=== PATIENT | male | born 1935 | race Caucasian/White ===

== ENCOUNTER 2016-05-29 18:39 | Inpatient (IN) | payer OTHER ==
--- NOTE | 2016-05-29 19:05 | EDPHY ---
H & P Stated Complaint: Fever/Chills had surgery at [facility] on 05/27 to remove melanoma HPI/ROS: HPI CHIEF COMPLAINT: Fever, chills, rigors, recent melanoma removal of face, right arm, and lymph node biopsy. HISTORY OF PRESENT ILLNESS: This patient very pleasant 81-year-old male, significant past medical history for pacemaker, hypertension, hyperlipidemia, AFib on Coumadin, he presents to the emergency room with chills and rigors concerns of infection status post biopsy and melanoma removal. Patient tells me that on May 27 he had melanoma removed out of his right arm, right side of his face, and lymph node biopsy in his right arm. He since then has had nighttime rigors and chills night sweats. No vomiting. No chest pain no shortness of breath. Past Medical History: Hypertension, hyperlipidemia, AFib on Coumadin, pacemaker , melanoma Past Surgical History: Recent melanoma removal right face right forearm. This was done on May 27 [place]. lymph node bx. Social History: Denies daily use of drugs alcohol tobacco products Family History: Noncontributory ROS REVIEW OF SYSTEMS: A comprehensive 10 point review of systems is otherwise negative aside from elements mentioned in the history of present illness. Exam Constitutional triage nursing summary reviewed, vital signs reviewed, awake/ alert. Eyes normal conjunctivae and sclera, EOMI, PERRLA. HENT normal inspection, atraumatic, moist mucus membranes, no epistaxis, neck supple/ no meningismus, no raccoon eyes. Respiratory clear to auscultation bilaterally, normal breath sounds, no respiratory distress, no wheezing. Cardiovascular rate normal, regular rhythm, no murmur, no edema, distal pulses normal. Gastrointestinal soft, non-tender, no rebound, no guarding, normal bowel sounds, no distension, no pulsatile mass. Genitourinary no CVA tenderness. Musculoskeletal right forearm lateral aspect: 10 cm vertical incision lateral aspect right forearm, redness surrounding sutures in place, appears to be infected cellulitis, no abscess, no pus drainage, distally neurovascular intact , warm to right forearm, lymph node biopsy site right medial arm biceps region shows no significant infection. no midline vertebral tenderness, full range of motion, no calf swelling, no tenderness of extremities, no meningismus, good pulses, neurovascularly intact. Skin pink, warm, & dry, no rash, skin atraumatic. Neurologic awake, alert and oriented x 3, AAOx3, moves all 4 extremities equally, motor intact, sensory intact, CN II-XII intact, normal cerebellar, normal vision, normal speech. Psychiatric normal mood/affect. Heme/Lymph/Immune no lymphadenopathy. Differential Diagnosis: Includes but is not limited to in a particular order, cellulitis, bacteremia, sepsis, dehydration, electrolyte abnormality, cancer causing fever Medical Decision Making: plan for this patient IV establishment, blood cultures , lactic acid, IV vancomycin. Patient will need to be admitted. Re-evaluation: ED x-ray chest two view: Subcutaneous care and right axilla mostly from lymph node biopsy. Right lung field slightly hazy. Image interpreted myself. No pneumothorax visualize. ED x-ray right forearm: No foreign body, no gas no osteomyelitis. 2043: this patient be admitted to the medical service spoke to the hospitalist Dr. Monae agrees to admit reason for admission is fever, chills, rigors, right forearm cellulitis with recent melanoma excision. Patient agrees for admission. Blood cultures have been pulled IV Vanco has been given. Patient is hemodynamically stable no fever here. Source: Patient - Personal History Current Tetanus Diphtheria and Acellular Pertussis (TDAP): Yes - Medical/Surgical History Other PMH: PM placed in 2008, Afib, hard of hearing - Social History Smoking Status: Never smoked Constitutional: Initial Vital Signs Temperature (C) 36.3 C 05/29/16 18:40 Heart Rate 91 05/29/16 18:40 Respiratory Rate 14 05/29/16 18:40 Blood Pressure 143/116 H 05/29/16 18:40 O2 Sat (%) 93 05/29/16 18:40 O2 Delivery Mode Room Air Allergies/Adverse Reactions: No Known Allergies Allergy (Verified 12/30/11 18:05) Home Medications: Medication Instructions Recorded Calcium Carbonate/Vitamin D3 1 each PO DAILY 05/29/16 [CALCIUM 600 + VIT D TABLET] Gabapentin [Neurontin 300 MG (*)] 300 mg PO DAILY 05/29/16 LORazepam [Ativan (*)] 0.5 mg PO DAILY PRN 05/29/16 Ramipril [Altace 5mg (*)] 5 mg PO DAILY 05/29/16 Simvastatin 40 mg PO HS 05/29/16 Warfarin Sodium [Coumadin 5MG (*)] 5 mg PO SUMOTUWETHFR 05/29/16 oxyCODONE HCL [Oxycodone HCl] 5 - 10 mg PO Q4H PRN 05/29/16 traZODone [traZODONE 50MG (*)] 75 mg PO HS 05/29/16 Medical Decision Making - Diagnostics Imaging: Imaging Impressions Chest X-Ray 05/29/16 19:15 Impression: Artifact versus asymmetric edema or early pneumonia in the right upper lobe. Findings discussed with Emergency Department physician, Ryder Apple MD at 05/29/2016 19:40. Wrist X-Ray 05/29/16 19:34 Impression: Negative. No evidence of osteomyelitis or subcutaneous gas. - Data Points Laboratory Results: Laboratory Results 05/29/16 19:18 05/29/16 19:18 05/29/16 05/29/16 05/29/16 19:39 19:18 19:18 WBC RBC Hgb Hct MCV MCH MCHC RDW Plt Count MPV Neut % (Auto) Lymph % (Auto) [place] % (Auto) Eos % (Auto) Baso % (Auto) Nucleat RBC Rel Count Absolute Neuts (auto) Absolute Lymphs (auto) Absolute Monos (auto) Absolute Eos (auto) Absolute Basos (auto) Absolute Nucleated RBC Immature Gran % Immature Gran # ESR PT 14.1 SEC SEC (12.0-15.0) INR 1.10 (0.83-1.16) APTT 29.1 SEC SEC (23.0-38.0) Sodium 139 mEq/L mEq/L (134-144) Potassium 4.2 mEq/L mEq/L (3.5-5.2) Chloride 103 mEq/L mEq/L (97-110) Carbon Dioxide 25 mEq/l mEq/l (22-31) Anion Gap 11 mEq/L mEq/L (8-16) BUN 12 mg/dL mg/dL (7-23) Creatinine 0.9 mg/dL mg/dL (0.7-1.3) Estimated GFR > 60 Glucose 97 mg/dL mg/dL (70-100) Calcium 9.5 mg/dL mg/dL (8.5-10.4) Total Bilirubin 1.6 mg/dL H mg/dL (0.1-1.4) AST 70 IU/L H IU/L (17-59) ALT 43 IU/L IU/L (21-72) Alkaline Phosphatase 54 IU/L IU/L (38-126) C-Reactive Protein 51.1 mg/L H mg/L (<10.0) Total Protein 7.5 g/dL g/dL (6.3-8.2) Albumin 4.3 g/dL g/dL (3.5-5.0) Urine Color YELLOW Urine Appearance CLEAR Urine pH 5.0 (5.0-7.5) Ur Specific [place] 1.021 (1.002-1.030) Urine Protein NEGATIVE (NEGATIVE) Urine Ketones 1+ H (NEGATIVE) Urine Blood NEGATIVE (NEGATIVE) Urine Nitrate NEGATIVE (NEGATIVE) Urine Bilirubin NEGATIVE (NEGATIVE) Urine Urobilinogen NEGATIVE EU EU (0.2-1.0) Ur Leukocyte Esterase NEGATIVE (NEGATIVE) Ur Culture Indicated? NOT INDICATED (NI) Urine Glucose NEGATIVE (NEGATIVE) 05/29/16 19:18 WBC 8.82 10^3/uL 10^3/uL (3.80-9.50) RBC 5.20 10^6/uL 10^6/uL (4.40-6.38) Hgb 16.6 g/dL g/dL (13.7-17.5) Hct 48.9 % % (40.0-51.0) MCV 94.0 fL fL (81.5-99.8) MCH 31.9 pg pg (27.9-34.1) MCHC 33.9 g/dL g/dL (32.4-36.7) RDW 13.1 % % (11.5-15.2) Plt Count 190 10^3/uL 10^3/uL (150-400) MPV 9.2 fL fL (8.7-11.7) Neut % (Auto) 75.6 % H % (39.3-74.2) Lymph % (Auto) 12.6 % L % (15.0-45.0) [place] % (Auto) 9.9 % % (4.5-13.0) Eos % (Auto) 1.2 % % (0.6-7.6) Baso % (Auto) 0.5 % % (0.3-1.7) Nucleat RBC Rel Count 0.0 % % (0.0-0.2) Absolute Neuts (auto) 6.67 10^3/uL H 10^3/uL (1.70-6.50) Absolute Lymphs (auto) 1.11 10^3/uL 10^3/uL (1.00-3.00) Absolute Monos (auto) 0.87 10^3/uL H 10^3/uL (0.30-0.80) Absolute Eos (auto) 0.11 10^3/uL 10^3/uL (0.03-0.40) Absolute Basos (auto) 0.04 10^3/uL 10^3/uL (0.02-0.10) Absolute Nucleated RBC 0.00 10^3/uL 10^3/uL (0-0.01) Immature Gran % 0.2 % % (0.0-1.1) Immature Gran # 0.02 10^3/uL 10^3/uL (0.00-0.10) ESR 6 MM/HR MM/HR (0-20) PT INR APTT Sodium Potassium Chloride Carbon Dioxide Anion Gap BUN Creatinine Estimated GFR Glucose Calcium Total Bilirubin AST ALT Alkaline Phosphatase C-Reactive Protein Total Protein Albumin Urine Color Urine Appearance Urine pH Ur Specific [place] Urine Protein Urine Ketones Urine Blood Urine Nitrate Urine Bilirubin Urine Urobilinogen Ur Leukocyte Esterase Ur Culture Indicated? Urine Glucose Medications Given: Discontinued Medications Sodium Chloride (Ns) 1,000 mls @ 0 mls/hr IV ONCE ONE PRN Reason: Wide Open Stop: 05/29/16 19:12 Last Admin: 05/29/16 19:23 Dose: 1,000 mls Vancomycin HCl 1.5 gm/ (Dextrose) 250 mls @ 166.67 mls/hr IV EDNOW ONE PRN Reason: Protocol Stop: 05/29/16 20:40 Last Admin: 05/29/16 20:05 Dose: 250 mls Departure - Departure Disposition: [facility] Inpatient Acute Clinical Impression: Right forearm cellulitis Condition: Good Referrals: Chris Baptiste MD [Primary Care Provider] - As per Instructions
[2016-05-29] MEDS ORDERED: NS 1,000 ML IV ONE (19:11)
[2016-05-29] MEDS ORDERED: VANCOMYCIN 1.5 GM in D5W 250 ML IV ONE (19:11)
[2016-05-29 19:38] LABS: % IMMATURE GRANULYOCYTES 0.2 % (0.0-1.1); ABSOLUTE IMMATURE GRANULOCYTES 0.02 10^3/uL (0.00-0.10); ADD DIFF? NO; ADD MORPH? NO; ADD SCAN? NO; ATYPICAL LYMPHOCYTE FLAG 0 (0-99); FRAGMENT RBC FLAG 0 (0-99); HEMATOCRIT 48.9 % (40.0-51.0); HEMOGLOBIN 16.6 g/dL (13.7-17.5); LEFT SHIFT FLG 0 (0-99); LIPEMIA HEMOLYSIS FLAG 90 (0-99); MEAN CELL HEMOGLOBIN 31.9 pg (27.9-34.1); MEAN CELL HEMOGLOBIN CONCENTR. 33.9 g/dL (32.4-36.7); MEAN PLATELET VOLUME 9.2 fL (8.7-11.7); PLATELET CLUMPS FLAG 0 (0-99); PLATELET COUNT 190 10^3/uL (150-400); RED CELL DISTRIBUTION WIDTH 13.1 % (11.5-15.2)
[2016-05-29 19:43] LABS: ALANINE AMINOTRANSFERASE 43 IU/L (21-72); ALBUMIN 4.3 g/dL (3.5-5.0); ALKALINE PHOSPHATASE 54 IU/L (38-126); ANION GAP 11 mEq/L (8-16); ASPARTATE AMINOTRANSFERASE 70 IU/L (17-59); BILIRUBIN,TOTAL 1.6 mg/dL (0.1-1.4); C-REACTIVE PROTEIN 51.1 mg/L (<10.0); CALCIUM 9.5 mg/dL (8.5-10.4); CARBON DIOXIDE 25 mEq/l (22-31); CHLORIDE 103 mEq/L (97-110); CREATININE 0.9 mg/dL (0.7-1.3); GLOMERULAR FILTRATION RATE > 60; GLUCOSE 97 mg/dL (70-100); POTASSIUM 4.2 mEq/L (3.5-5.2); SODIUM 139 mEq/L (134-144); TOTAL PROTEIN 7.5 g/dL (6.3-8.2)
[2016-05-29 19:44] LABS: APTT 29.1 SEC (23.0-38.0); INR 1.1 (0.83-1.16); PROTIME(PATIENT) 14.1 SEC (12.0-15.0)
[2016-05-29 19:48] LABS: COLOR YELLOW; LEUKOCYTE ESTERASE,URINE NEGATIVE (NEGATIVE); NITRITE,URINE NEGATIVE (NEGATIVE)
[2016-05-29 19:53] LABS: SEDIMENTATION RATE 6 MM/HR (0-20)
[2016-05-29] MEDS ORDERED: PIPERACILLIN/TAZO 4.5 GM/DEX 100 ML IV ONE (21:09)
[2016-05-29] MEDS ORDERED: HYDROmorphONE/DILAUDID 1 MG/ML SYR IVP PRN (21:25)
[2016-05-29] MEDS ORDERED: ALBUTEROL 3 ML DEYVIAL IH PRN (21:25)
[2016-05-29] MEDS ORDERED: oxyCODONE IR 5 MG TAB PO PRN (21:25)
[2016-05-29] MEDS ORDERED: ONDANSETRON 4 MG/2 ML VIAL IVP PRN (21:25)
[2016-05-29] MEDS ORDERED: ONDANSETRON DISINTEGRATING 4 MG TAB PO PRN (21:25)
[2016-05-29] MEDS ORDERED: LORazepam 0.5 MG TAB PO PRN (21:27)
[2016-05-29] MEDS ORDERED: NS 1,000 ML IV SCH (21:30)
[2016-05-29] MEDS ORDERED: WARFARIN SODIUM 5 MG TAB PO SCH (21:30)
[2016-05-29] MEDS: ACETAMINOPHEN 325 MG TAB PO PRN (22:26)
[2016-05-29] MEDS: traZODone 50 MG TAB PO SCH (22:27)
--- NOTE | 2016-05-29 23:39 | GHP ---
[f rep st] HISTORY AND PHYSICAL DATE OF ADMISSION: 05/29/2016 CHIEF COMPLAINT: Fevers and chills. HISTORY: This is an 81-year-old man with a past medical history of melanoma status post recent exci aleksandra of forearm lesion done at [facility] who presents with subjective fevers, chills, and sweats that have developed in the postoperative state. He denies any other complaints other than re dness and pain and limited mobility in the wrist nearby the incision site. He denies any chest pain , shortness of breath, cough, or urinary symptoms. He does have somewhat of a sore throat that he h as had since the surgery, which was on May 27. He does note that he was intubated at that time. PAST MEDICAL HISTORY: Includes: 1. Melanoma. 2. Hypertension. 3. Hyperlipidemia. 4. Atrial fibrillation with permanent pacemaker. 5. DVT as well as PVD status post femoral stent. 6. Restless legs syndrome. PAST SURGICAL HISTORY: Melanoma resections on right face, right forearm at the [facility] with lymph node biopsy, hernia repair, permanent pacemaker, and orthopedic surgery. SOCIAL HISTORY: Patient is quite active and bikes about 100 miles a week. He drinks alcohol occasi onally. He is a nonsmoker. He is . FAMILY HISTORY: Noncontributory. REVIEW OF SYSTEMS: 10-point review of systems obtained, negative except as per HPI. HOME MEDICATIONS: 1. Trazodone. 2. Oxycodone. 3. Warfarin. 4. Simvastatin. 5. Ramipril. 6. Ativan. 7. Gabapentin. 8. Calcium. ALLERGIES: No known drug allergies. PHYSICAL EXAM: VITAL SIGNS: BP 141/86, heart rate 67, respiratory rate 16, O2 sats 95% on room air . Temperature is 36.6. GENERAL APPEARANCE: This is an elderly man. He is awake and alert. He is in no acute distress. EYES: Anicteric. HEENT: Surgical incision site on the right cheek is emmanuel n, dry, and intact. Oropharynx is clear. CARDIOVASCULAR: RRR. No MRG. PULMONARY: CTA bilateral ly. Normal work of breathing. ABDOMEN: Soft, nontender. Positive bowel sounds. EXTREMITIES: No clubbing, cyanosis, or edema. SKIN: Warm, dry, well perfused. Right forearm incision is erythema tous and tender to palpation. There is warmth and purulent discharge. NEURO/PSYCH: Oriented and a ppropriate. CLINICAL DATA: Labs reviewed. Significant for a white blood cell count of 8.8, hematocrit of 48.9. Coags are normal. Chemistry is unremarkable other than a total bilirubin of 1.6. Urinalysis show s 1+ ketones. Chest x-ray, personally reviewed and interpreted, shows either asymmetric edema or ea rly pneumonia in the right upper lobe. Wrist x-ray, personally reviewed and interpreted, shows no a cute findings. No osteomyelitis or subcutaneous gas. ASSESSMENT AND PLAN: This is an 81-year-old man with a past medical history of melanoma status post recent excision of melanoma from the right wrist presenting with chills and sweats and cellulitis s urrounding the surgical incision site. 1. Cellulitis. Appears to have an infected surgical wound. Cultures have been sent. X-ray unrema rkable. Started on vancomycin. We will ask ID to evaluate in the morning as well. Surgery did john efly evaluate and did not feel that this was going to require any kind of surgical intervention, but given proximity to the wrist, should this not improve as expected, will need orthopedic consult. 2. Right upper lobe opacity. Query aspiration pneumonitis versus aspiration pneumonia. He does no t really have any pulmonary complaints at this time. He was given a dose of Zosyn in the ER to cove r for aspiration, and we will continue Levaquin for now. We will repeat x-ray in the morning but wo uld have a low threshold to discontinue antibiotics aimed at treating pneumonia, as he has very rasta le respiratory symptoms. 3. Melanoma. Again, patient status post multiple recent surgeries for excision of melanoma, includ ing his right wrist and face. He is followed at the [facility] for this. 4. Elevated bilirubin. 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 He has no abdominal complaint s. We will get a followup liver function test panel in the morning. 5. History of DVT. Currently on Coumadin. INR is subtherapeutic. Coumadin was held in the preop period. We will follow INR while in house. 6. Paroxysmal atrial fibrillation with permanent pacemaker in place. He does not have any complain ts of chest pain or other concerns that would lead me to worry about an underlying cardiac event. W e will continue his usual outpatient medications. 7. Hyperlipidemia. We will continue simvastatin. 8. Disposition: Observation status. Suspect he will need less than 48 hours stay for evaluation a nd management of above. 9. Patient is new to my care. Old records reviewed, summarized as per HPI and past medical history . Care plan reviewed with ER physician, including plans for antibiotic therapy. /[id number]/MODL
[2016-05-30 05:01] LABS: % IMMATURE GRANULYOCYTES 0.4 % (0.0-1.1); ABSOLUTE IMMATURE GRANULOCYTES 0.03 10^3/uL (0.00-0.10); ADD DIFF? NO; ADD MORPH? NO; ADD SCAN? NO; ATYPICAL LYMPHOCYTE FLAG 0 (0-99); FRAGMENT RBC FLAG 0 (0-99); HEMATOCRIT 45.3 % (40.0-51.0); HEMOGLOBIN 15.1 g/dL (13.7-17.5); LEFT SHIFT FLG 0 (0-99); LIPEMIA HEMOLYSIS FLAG 80 (0-99); MEAN CELL HEMOGLOBIN 31.9 pg (27.9-34.1); MEAN CELL HEMOGLOBIN CONCENTR. 33.3 g/dL (32.4-36.7); MEAN CELL VOLUME 95.8 fL (81.5-99.8); MEAN PLATELET VOLUME 9.2 fL (8.7-11.7); PLATELET CLUMPS FLAG 0 (0-99); PLATELET COUNT 140 10^3/uL (150-400); RED BLOOD CELL COUNT 4.73 10^6/uL (4.40-6.38)
[2016-05-30 05:10] LABS: ALANINE AMINOTRANSFERASE 40 IU/L (21-72); ALBUMIN 3.1 g/dL (3.5-5.0); ALKALINE PHOSPHATASE 35 IU/L (38-126); ANION GAP 7 mEq/L (8-16); ASPARTATE AMINOTRANSFERASE 58 IU/L (17-59); BILIRUBIN,TOTAL 1.3 mg/dL (0.1-1.4); BILIRUBIN-CONJUGATED 0.3 mg/dL (0.0-0.5); CALCIUM 8.2 mg/dL (8.5-10.4); CARBON DIOXIDE 24 mEq/l (22-31); CHLORIDE 109 mEq/L (97-110); CREATININE 0.8 mg/dL (0.7-1.3); GLOMERULAR FILTRATION RATE > 60; GLUCOSE 81 mg/dL (70-100); POTASSIUM 4.1 mEq/L (3.5-5.2); SODIUM 140 mEq/L (134-144); TOTAL PROTEIN 5.7 g/dL (6.3-8.2)
[2016-05-30 05:36] LABS: INR 1.31 (0.83-1.16); PROTIME(PATIENT) 16.3 SEC (12.0-15.0)
[2016-05-30] MEDS: CALCIUM CARB W/VIT D 500 MG TAB PO SCH (09:22)
[2016-05-30] MEDS: RAMIPRIL 5 MG CAP PO SCH (09:22)
[2016-05-30] MEDS: GABAPENTIN 300 MG CAP PO SCH (09:22)
[2016-05-30] MEDS: ACETAMINOPHEN 325 MG TAB PO PRN (09:22)
--- NOTE | 2016-05-30 14:13 | HOSPPROG ---
Hospitalist Progress Note Assessment/Plan: 81-year-old admitted with a left arm cellulitis post excision of a melanoma at the [facility] [address] [facility] [address] [employer]. He also had a right axillary node excision. He has multiple other medical problems. Patient is new to me today -right arm cellulitis postop operative of the excision of a melanoma on the forearm. He is currently on vancomycin and Levaquin with ID consultation. Per the patient he is improving. The pain is less in his arm. -proximal atrial fibrillation status post ppm and on Coumadin anticoagulation with a subtherapeutic INR. The Coumadin was held pre operative of the biopsy and excision on his right forearm. We will restart his Coumadin and follow his INR. -hypertension currently in good control. -constipation current secondary to narcotic medication. Patient we placed on a bowel care protocol. 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 Will follow. Subjective: Reports his arm is feeling much better now post dressing changes in the beginning of antibiotics. Is also complaining of constipation. There is no nausea vomiting chest pain or shortness of breath. Objective: Vital Signs Temp Pulse Resp BP Pulse Ox 36.9 C 72 16 126/71 H 96 05/30/16 12:25 05/30/16 12:25 05/30/16 12:25 05/30/16 12:25 05/30/16 12:25 Laboratory Results 05/30/16 04:44 05/30/16 04:44 05/29/16 05/30/16 05/31/16 05:59 05:59 05:59 Intake Total 1800 Output Total 1 350 Balance 1799 -350 PT 16.3 SEC (12.0-15.0) H 05/30/16 04:44 INR 1.31 (0.83-1.16) H 05/30/16 04:44 - Time Spent With Patient Time Spent with Patient: greater than 35 minutes Time Spent with Patient: Greater than 35 minutes spent on this patients care, greater than 50% of time spent counseling, educating, and coordinating care regarding the above mentioned plan. - Pending Discharge Pending Discharge Within 24 Hours: No Pending Discharge Within 48 Hours: Yes Pending Discharge Date: 06/01/16 Pending Discharge Time: 11:00 - Physical Exam Constitutional: no apparent distress Eyes: PERRL, anicteric sclera Ears, Nose, Mouth, Throat: moist mucous membranes, hard of hearing Cardiovascular: regular rate and rhythym Respiratory: no respiratory distress, no rales or rhonchi Skin: other (Right arm shows a healing 10 cm long site of excision of a melanoma. There is surrounding erythema and warmth without ascending tracks the right exit [place] region also shows a surgical site with sutures in place which is tender and healing well. There is subcutaneous crepitus noted in the right axillary region.) Neurologic: AAOx3, CN II-XII Intact Psychiatric: interacting appropriately ICD10 Worksheet Patient Problems: Problems Problem Status Onset Diverticulitis Active Benign hypertension Active Cardiac pacemaker in situ Active History of - pulmonary embolus Active Epistaxis Active Right forearm cellulitis Acute
[2016-05-30] MEDS ORDERED: BISACODYL 10 MG SUPP PR PRN (14:15)
[2016-05-30] MEDS ORDERED: POLYETHYLENE GLYCOL 3350 17 GM PKT PO PRN (14:15)
[2016-05-30] MEDS ORDERED: LACTULOSE 20 GM/30 ML UDCUP PO PRN (14:15)
[2016-05-30] MEDS ORDERED: MAGNESIUM HYDROXIDE 30 ML UDCUP PO PRN (14:15)
[2016-05-30] MEDS: WARFARIN SODIUM 5 MG TAB PO SCH (17:09)
[2016-05-30] MEDS: traMADol 50 MG TAB PO PRN (17:11)
--- NOTE | 2016-05-30 18:37 | GCON ---
[f rep st] CONSULTATION INPATIENT INFECTIOUS DISEASE CONSULTATION. REFERRING PHYSICIAN: Angie To MD REASON FOR REFERRAL: Postoperative infection, right arm. HISTORY OF PRESENT ILLNESS: Patient is an 81-year-old male with a recent past medical history of in vasive melanoma on the right arm. He underwent an excision of the forearm lesion at [facility] approximately 1 week ago. The patient also had a pre-melanomatous lesion excised from the righ t side of his face. He underwent sentinel node biopsy, as well, of the invasive melanoma on his rig ht arm. Those results are still pending. He presented to [facility] Emergency Room o n 05/29/2016 complaining of fevers and chills. He noted that there was increased redness, pain, and limited mobility in his right wrist, which is just adjacent to the incision site on the forearm. Johanna marinelli was admitted and started on IV vancomycin and Levaquin. He relates that there has been no si gnificant change in his arm appearance since admission, although generally he feels a little improve d. PAST MEDICAL HISTORY: 1. Malignant melanoma. 2. Hypertension. 3. Hyperlipidemia. 4. Atrial fibrillation. 5. Deep venous thrombosis. 6. Restless leg syndrome. PAST SURGICAL HISTORY: 1. Status post melanoma resection, right forearm, and pre-melanoma lesion excised, right face. 2. Status post hernia repair. 3. Status post pacemaker placement. 4. Status post nonspecified orthopedic surgery. ANTIBIOTICS: 1. Vancomycin. 2. Levaquin. ALLERGIES: No known drug allergies. SOCIAL HISTORY: Patient is active with good family support. He has occasional alcoholic drink. No tobacco. FAMILY HISTORY: Reviewed and noncontributory. REVIEW OF SYSTEMS: All other than that detailed above in history of present illness, a 10 system re view is negative. PHYSICAL EXAMINATION: VITAL SIGNS: Temperature maximum is 36.9, temperature current is 36.6, heart rate is 56, respiratory rate is 14, blood pressure is 134/73. GENERAL: A well-formed, well-nourished, elderly male, in no acute distress. He is not toxic in ankita earance. He is alert and oriented x3. He is very pleasant in demeanor. HEENT: Normocephalic for age. Atraumatic. No scleral icterus. No oral lesion. No drainage from the nares. EYES: Lids and conjunctivae within normal limits. Pupils equal and round bilaterally. NECK: Supple. No meningismus. LUNGS: Clear to auscultation bilaterally with good effort. HEART: Regular rate and rhythm. No murmur, rub, or gallop noted. No significant peripheral edema. SKIN: Warm and dry to the touch. Patient has a right distal forearm incision with surrounding eryt amy. There is tenderness to palpation surrounding the incision. There is no fluctuance or purulen t drainage noted. There is significant warmth in the area. MUSCULOSKELETAL: No muscle or bone tenderness is noted. No joint line effusion or arthritis is see n. NEURO: Cranial nerves 2-12 seem to be intact. Peripheral sensation seems intact in extremities. LABORATORY DATA: CBC dated 05/30/2016 shows white blood cell count of 7.16, hemoglobin of 15.1, hem atocrit 45.3, and platelet count 140; differentials within normal limits. Serum chemistries on 05/16 are all within normal limits; creatinine 0.8, AST is 58, ALT is 40. Urinalysis from 05/29/2016 is all within normal limits apart from 1+ ketones. ASSESSMENT: Apparent postoperative infection of the right forearm, status post melanoma excision. Covering with both vancomycin and Levaquin. Suspect that this is most likely either streptococcal o r staphylococcal. Will observe on current regimen for 1 more day and to try to minimize or consolid ate therapy as soon as improvement is evident. PLAN: 1. Continue both vancomycin and Levaquin for now. 2. Follow the appearance of the erythema and tenderness around the right upper extremity. When it reduces, can change to a single agent or possibly oral antibiotic for discharge. /[id number]/MODL
[2016-05-30] MEDS: ATORVASTATIN CALCIUM 20 MG TAB PO SCH (20:01)
[2016-05-30] MEDS: VANCOMYCIN 1.25 GM in D5W 250 ML IV SCH (20:01)
[2016-05-30] MEDS: SENNOSIDES/DOCUSATE SODIUM TAB PO SCH (20:01)
[2016-05-30] MEDS: traZODone 50 MG TAB PO SCH (22:30)
[2016-05-31 05:17] LABS: INR 1.64 (0.83-1.16); PROTIME(PATIENT) 19.5 SEC (12.0-15.0)
[2016-05-31 05:22] LABS: ANION GAP 10 mEq/L (8-16); CALCIUM 8.7 mg/dL (8.5-10.4); CARBON DIOXIDE 20 mEq/l (22-31); CHLORIDE 112 mEq/L (97-110); CREATININE 0.8 mg/dL (0.7-1.3); GLOMERULAR FILTRATION RATE > 60; GLUCOSE 85 mg/dL (70-100); SODIUM 142 mEq/L (134-144)
[2016-05-31 05:49] LABS: % IMMATURE GRANULYOCYTES 0.2 % (0.0-1.1); ABSOLUTE IMMATURE GRANULOCYTES 0.01 10^3/uL (0.00-0.10); ADD DIFF? NO; ADD MORPH? NO; ADD SCAN? NO; ATYPICAL LYMPHOCYTE FLAG 0 (0-99); FRAGMENT RBC FLAG 0 (0-99); HEMATOCRIT 44.6 % (40.0-51.0); HEMOGLOBIN 14.9 g/dL (13.7-17.5); LEFT SHIFT FLG 0 (0-99); LIPEMIA HEMOLYSIS FLAG 80 (0-99); MEAN CELL HEMOGLOBIN 31.4 pg (27.9-34.1); MEAN CELL HEMOGLOBIN CONCENTR. 33.4 g/dL (32.4-36.7); MEAN CELL VOLUME 93.9 fL (81.5-99.8); PLATELET CLUMPS FLAG 10 (0-99); PLATELET COUNT 145 10^3/uL (150-400); RED BLOOD CELL COUNT 4.75 10^6/uL (4.40-6.38); RED CELL DISTRIBUTION WIDTH 13.2 % (11.5-15.2)
[2016-05-31] MEDS: GABAPENTIN 300 MG CAP PO SCH (10:30)
[2016-05-31] MEDS: traMADol 50 MG TAB PO PRN ×2 (10:30→21:23)
[2016-05-31] MEDS: RAMIPRIL 5 MG CAP PO SCH (10:31)
[2016-05-31] MEDS: CALCIUM CARB W/VIT D 500 MG TAB PO SCH (10:31)
[2016-05-31] MEDS: SENNOSIDES/DOCUSATE SODIUM TAB PO SCH ×2 (10:31→21:21)
--- NOTE | 2016-05-31 12:01 | PCMIDPN ---
Assessment/Plan: Assessment: Postoperative infection right forearm. Clinically the soft tissue around the suture line looks much improved. He is still slightly tender. Plan to continue the IV vancomycin and Levaquin 1 more day and re-evaluate the clinical appearance. If he is similarly improved we can discharge him on oral Augmentin for completion of treatment. Plan: 1. Continue both vancomycin and Levaquin. 2. Follow appearance of the incision. 3. Follow wound culture results. 05/31/16 15:27 05/31/16 15:28 Subjective: Patient is feeling well. He states that his right arm is wet press tender although not nearly as tender as it was yesterday at the day before. He believes the soft tissues are looking better. No fevers or chills. Objective: Vancomycin # 1 Levaquin # 2 Vital Signs Temp Pulse Resp BP Pulse Ox 37.2 C 56 L 18 148/69 H 93 05/31/16 08:00 05/31/16 08:00 05/31/16 08:00 05/31/16 10:31 05/31/16 08:00 Laboratory Results 05/31/16 05:40 05/31/16 05:02 05/30/16 05/31/16 06/01/16 05:59 05:59 05:59 Intake Total 1100 Output Total 500 Balance 600 ESR 6 MM/HR (0-20) 05/29/16 19:18 C-Reactive Protein 51.1 mg/L (<10.0) H 05/29/16 19:18 - Physical Exam General Appearance: WD/WN, alert, no apparent distress, non-toxic Respiratory: lungs clear, normal breath sounds, No respiratory distress Cardiac/Chest: regular rate, rhythm, No tachycardia Extremities: No non-tender (Mild tenderness around the incision of the right forearm.), No normal inspection (Right forearm incisions slightly dusky and erythematous.) Skin: normal color, warm/dry, No rash Neuro/Psych: alert, normal mood/affect, oriented x 3 ICD10 Worksheet Patient Problems: Problems Problem Status Onset Right forearm cellulitis Acute Benign hypertension Active Cardiac pacemaker in situ Active Diverticulitis Active Epistaxis Active History of - pulmonary embolus Active
--- NOTE | 2016-05-31 15:37 | HOSPPROG ---
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 He also had a right axillary node excision. He has multiple other medical problems. Today, 05/31, the right arm is much improved according to the patient and less painful. 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 He is currently on vancomycin and Levaquin. Id input and consult appreciated. Per the patient he is improving. The pain is less in his arm. -proximal atrial fibrillation status post ppm and on Coumadin anticoagulation with a subtherapeutic INR. The Coumadin was held pre operative of the biopsy and excision on his right forearm. We will restart his Coumadin and follow his INR. INR continues to be subtherapeutic but will continue Coumadin at 5 mg a day. -hypertension currently in good control. -constipation current secondary to narcotic medication. Patient we placed on a bowel care protocol. 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 Will follow. Disposition: Probable discharge on 06/01 on Augmentin per ID. Subjective: Reports the arm is feeling improved less painful. no other complaints Objective: Vital Signs Temp Pulse Resp BP Pulse Ox 37.2 C 56 L 18 148/69 H 93 05/31/16 08:00 05/31/16 08:00 05/31/16 08:00 05/31/16 10:31 05/31/16 08:00 Laboratory Results 05/31/16 05:40 05/31/16 05:02 05/30/16 05/31/16 06/01/16 05:59 05:59 05:59 Intake Total 1100 Output Total 500 Balance 600 PT 19.5 SEC (12.0-15.0) H 05/31/16 05:02 INR 1.64 (0.83-1.16) H 05/31/16 05:02 - Time Spent With Patient Time Spent with Patient: greater than 35 minutes Time Spent with Patient: Greater than 35 minutes spent on this patients care, greater than 50% of time spent counseling, educating, and coordinating care regarding the above mentioned plan. - Pending Discharge Pending Discharge Within 24 Hours: Yes Pending Discharge Date: 06/01/16 Pending Discharge Time: 11:00 - Physical Exam Constitutional: no apparent distress Eyes: PERRL Ears, Nose, Mouth, Throat: moist mucous membranes Cardiovascular: regular rate and rhythym, no murmur, rub, or gallop Respiratory: no respiratory distress, no rales or rhonchi, clear to auscultation Skin: warm Musculoskeletal: other (Right arm surgical wound shows less surrounding erythema and significant improvement in the last 24 hours. There is oozing from the surgical wound site but no purulence is expressed. The right axillary biopsy site is non erythematous and nontender.) ICD10 Worksheet Patient Problems: Problems Problem Status Onset Diverticulitis Active Benign hypertension Active Cardiac pacemaker in situ Active History of - pulmonary embolus Active Epistaxis Active Right forearm cellulitis Acute
[2016-05-31] MEDS ORDERED: WARFARIN SODIUM 5 MG TAB PO SCH (16:00)
[2016-05-31] MEDS: WARFARIN SODIUM 5 MG TAB PO SCH (18:00)
[2016-05-31] MEDS: VANCOMYCIN 1.25 GM in D5W 250 ML IV SCH (21:15)
[2016-05-31] MEDS: ATORVASTATIN CALCIUM 20 MG TAB PO SCH (21:21)
[2016-05-31] MEDS: traZODone 50 MG TAB PO SCH (22:48)
[2016-06-01 05:21] LABS: % IMMATURE GRANULYOCYTES 0.4 % (0.0-1.1); ABSOLUTE IMMATURE GRANULOCYTES 0.02 10^3/uL (0.00-0.10); ADD DIFF? NO; ADD MORPH? NO; ADD SCAN? NO; ATYPICAL LYMPHOCYTE FLAG 10 (0-99); FRAGMENT RBC FLAG 0 (0-99); HEMATOCRIT 46.6 % (40.0-51.0); HEMOGLOBIN 15.6 g/dL (13.7-17.5); LEFT SHIFT FLG 0 (0-99); LIPEMIA HEMOLYSIS FLAG 80 (0-99); MEAN CELL HEMOGLOBIN 31.7 pg (27.9-34.1); MEAN CELL HEMOGLOBIN CONCENTR. 33.5 g/dL (32.4-36.7); MEAN CELL VOLUME 94.7 fL (81.5-99.8); MEAN PLATELET VOLUME 9.3 fL (8.7-11.7); PLATELET CLUMPS FLAG 0 (0-99); PLATELET COUNT 154 10^3/uL (150-400); RED BLOOD CELL COUNT 4.92 10^6/uL (4.40-6.38); RED CELL DISTRIBUTION WIDTH 13.2 % (11.5-15.2)
[2016-06-01 05:40] LABS: ANION GAP 8 mEq/L (8-16); CARBON DIOXIDE 24 mEq/l (22-31); CHLORIDE 109 mEq/L (97-110); CREATININE 0.8 mg/dL (0.7-1.3); GLOMERULAR FILTRATION RATE > 60; GLUCOSE 88 mg/dL (70-100); POTASSIUM 3.9 mEq/L (3.5-5.2); SODIUM 141 mEq/L (134-144)
[2016-06-01 06:10] LABS: INR 1.62 (0.83-1.16); PROTIME(PATIENT) 19.3 SEC (12.0-15.0)
[2016-06-01] MEDS: SENNOSIDES/DOCUSATE SODIUM TAB PO SCH ×2 (08:43→21:06)
[2016-06-01] MEDS: GABAPENTIN 300 MG CAP PO SCH (08:43)
[2016-06-01] MEDS: RAMIPRIL 5 MG CAP PO SCH (08:43)
[2016-06-01] MEDS: CALCIUM CARB W/VIT D 500 MG TAB PO SCH (08:43)
[2016-06-01] MEDS: ACETAMINOPHEN 325 MG TAB PO PRN ×2 (08:59→13:48)
--- NOTE | 2016-06-01 13:57 | HOSPPROG ---
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 He also had a right axillary node excision. He has multiple other medical problems. Today, 05/31, and 06/01 the right arm is much improved according to the patient and less painful. 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 He is currently on vancomycin and Levaquin. Id input and consult appreciated. Per the patient he is improving. The pain is less in his arm. IVs plan is for 1 or 2 days more of IV antibiotics and then a discharge on Augmentin. -proximal atrial fibrillation status post ppm and on Coumadin anticoagulation with a subtherapeutic INR. The Coumadin was held pre operative of the biopsy and excision on his right forearm. We will restart his Coumadin and follow his INR. INR continues to be subtherapeutic but will continue Coumadin at 5 mg a day. -hypertension currently in good control. -constipation current secondary to narcotic medication. Patient we placed on a bowel care protocol. 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 Will follow. Disposition: Probable discharge on 06/02 on Augmentin per ID. Subjective: Reports the wound is continuing to improve and is less painful. No other complaints Objective: Vital Signs Temp Pulse Resp BP Pulse Ox 37.0 C 68 15 149/88 H 95 06/01/16 08:00 06/01/16 08:00 06/01/16 08:00 06/01/16 08:43 06/01/16 08:00 Microbiology 05/31/16 11:12 Gram Stain - Final Arm - Anaerobic Tube/Swab Laboratory Results 06/01/16 04:52 06/01/16 04:52 05/31/16 06/01/16 06/02/16 05:59 05:59 05:59 Intake Total 1100 750 Output Total 500 Balance 600 750 PT 19.3 SEC (12.0-15.0) H 06/01/16 04:52 INR 1.62 (0.83-1.16) H 06/01/16 04:52 - Time Spent With Patient Time Spent with Patient: greater than 25 minutes Time Spent with Patient: Greater than 25 minutes spent on this patients care, greater than 50% of time spent counseling, educating, and coordinating care regarding the above mentioned plan. - Pending Discharge Pending Discharge Within 24 Hours: Yes Pending Discharge Date: 06/02/16 Pending Discharge Time: 11:00 - Physical Exam Constitutional: no apparent distress Eyes: PERRL Ears, Nose, Mouth, Throat: moist mucous membranes Cardiovascular: regular rate and rhythym, no murmur, rub, or gallop Respiratory: no respiratory distress Gastrointestinal: normoactive bowel sounds, soft, non-tender abdomen Skin: other (Right arm wound is less erythematous and has less drainage than yesterday. It shows progressive improvement. The right axilla is nontender and without erythema. Sutures are in place at both sites.) Musculoskeletal: full muscle strength Neurologic: AAOx3, CN II-XII Intact Psychiatric: interacting appropriately ICD10 Worksheet Patient Problems: Problems Problem Status Onset Diverticulitis Active Benign hypertension Active Cardiac pacemaker in situ Active History of - pulmonary embolus Active Epistaxis Active Right forearm cellulitis Acute
[2016-06-01] MEDS: WARFARIN SODIUM 5 MG TAB PO SCH (16:36)
[2016-06-01 16:37] VITALS: RESP 16
--- NOTE | 2016-06-01 16:41 | PCMIDPN ---
Assessment/Plan: Assessment: Postoperative infection right forearm. Clinically the soft tissue around the suture line looks a bit improved from yesterday. He is no longer tender. Plan to continue the IV vancomycin and Levaquin another day and re-evaluate the clinical appearance. If he is similarly improved we can discharge him on oral Augmentin for completion of treatment. Plan: 1. Continue both vancomycin and Levaquin. 2. Follow appearance of the incision. 3. Follow wound culture results. Subjective: Patient is doing well. He is tolerating antibiotics without issue. He states that he has no tenderness around the incision of his right forearm anymore. He does note that the incision still is somewhat red and discharging serosanguineous fluid. Objective: Vancomycin # 2 Levaquin # 3 Vital Signs Temp Pulse Resp BP Pulse Ox 36.8 C 63 16 119/76 91 L 06/01/16 16:00 06/01/16 16:00 06/01/16 16:00 06/01/16 16:00 06/01/16 16:00 Microbiology 05/31/16 11:12 Gram Stain - Final Arm - Anaerobic Tube/Swab Laboratory Results 06/01/16 04:52 06/01/16 04:52 05/31/16 06/01/16 06/02/16 05:59 05:59 05:59 Intake Total 1100 750 Output Total 500 Balance 600 750 ESR 6 MM/HR (0-20) 05/29/16 19:18 C-Reactive Protein 51.1 mg/L (<10.0) H 05/29/16 19:18 - Physical Exam General Appearance: WD/WN, alert, no apparent distress, non-toxic Respiratory: lungs clear, normal breath sounds, No respiratory distress Cardiac/Chest: regular rate, rhythm, No tachycardia Extremities: non-tender, No normal inspection Skin: normal color, warm/dry, No rash Neuro/Psych: alert, normal mood/affect, oriented x 3 ICD10 Worksheet Patient Problems: Problems Problem Status Onset Right forearm cellulitis Acute Benign hypertension Active Cardiac pacemaker in situ Active Diverticulitis Active Epistaxis Active History of - pulmonary embolus Active
[2016-06-01] MEDS ORDERED: risperiDONE 0.5 MG TAB PO ONE (16:55)
[2016-06-01] MEDS: ATORVASTATIN CALCIUM 20 MG TAB PO SCH (21:06)
[2016-06-01] MEDS: VANCOMYCIN 1.25 GM in D5W 250 ML IV SCH (21:06)
[2016-06-01] MEDS: traZODone 50 MG TAB PO SCH (21:06)
[2016-06-02 06:11] LABS: INR 2.1 (0.83-1.16); PROTIME(PATIENT) 23.7 SEC (12.0-15.0)
[2016-06-02 07:37] VITALS: PULSE 47; TEMP 98.3; O2SAT 92
[2016-06-02] MEDS: GABAPENTIN 300 MG CAP PO SCH (09:18)
[2016-06-02] MEDS: CALCIUM CARB W/VIT D 500 MG TAB PO SCH (09:18)
[2016-06-02] MEDS: RAMIPRIL 5 MG CAP PO SCH (09:18)
[2016-06-02] MEDS: SENNOSIDES/DOCUSATE SODIUM TAB PO SCH (09:20)
[2016-06-02 09:27] VITALS: BP 109/62
--- NOTE | 2016-06-02 10:47 | PCMIDPN ---
Assessment/Plan: Assessment/Plan: 1. Right forearm cellulitis after excision melanoma: - Some ongoing improvement. No pain and improvement in range of motion. -stable labs from yesterday. - blood cx ngtd -Currently on Vanco, levaquin. -Care coordinated with hospitalist team. -will set up f/u appt with Dr. Gage for 06/05/16 at 9:30am. Meds vanco levaquin. Subjective: Afebrile. Doing well. denies pain. Range of motion has improved and he feels no limitations. Elliot sob, abd pain. has loose stools one time a day. Objective: Vital Signs Temp Pulse Resp BP Pulse Ox 36.8 C 47 L 16 109/62 92 06/02/16 07:36 06/02/16 07:36 06/02/16 07:36 06/02/16 09:18 06/02/16 07:36 Microbiology 05/31/16 11:12 Gram Stain - Final Arm - Anaerobic Tube/Swab Laboratory Results 06/01/16 04:52 06/01/16 04:52 06/01/16 06/02/16 06/03/16 05:59 05:59 05:59 Intake Total 750 1300 Balance 750 1300 ESR 6 MM/HR (0-20) 05/29/16 19:18 C-Reactive Protein 51.1 mg/L (<10.0) H 05/29/16 19:18 - Physical Exam General Appearance: alert, no apparent distress Respiratory: lungs clear Cardiac/Chest: regular rate, rhythm Extremities: swelling (less swelling involving right hand/wrist. sutures noted. redness just outside of that. minimal serosanguinous drainage on dressing. warmth appreciated. nontender to palpate) Abdomen: normal bowel sounds, non-tender, soft, No distended Skin: other (see above. ) ICD10 Worksheet Patient Problems: Problems Problem Status Onset Right forearm cellulitis Acute Benign hypertension Active Cardiac pacemaker in situ Active Diverticulitis Active Epistaxis Active History of - pulmonary embolus Active
--- NOTE | 2016-06-02 16:29 | GDS ---
[f rep st] DISCHARGE SUMMARY DISCHARGE DIAGNOSES: 1. Right arm cellulitis. Postop excision of melanoma of the forearm. 2. Paroxysmal atrial fibrillation. 3. Controlled hypertension. 4. Constipation. CONSULTANTS: Dr. Fermin Gage, Infectious Disease. HOSPITAL COURSE AND STAY BY PROBLEM: Forearm cellulitis: The patient was admitted to the hospital where he was treated with IV vancomycin and levofloxacin. On day of discharge, it appears that his cellulitis is improving, and I discussed the case with Dr. Gonzalez who was in agreement with continuing Dr. Gage's plan of continuing Augmentin to complete a 10-day course. PHYSICAL EXAM: VITAL SIGNS: On day of discharge, blood pressure 109/62, pulse 47, respiratory rate 16, O2 saturation 92% on room air. GENERAL: No acute distress. HEART: S1, S2. LUNGS: Clear. ABDOMEN: Soft. EXTREMITIES: No edema. Right forearm has improved erythema. Wound is closed with out discharge or exudate. There is no fluctuance or induration. DISCHARGE MEDICATIONS: Please refer to discharge medication reconciliation in [facility] for full det ails. Below is a preliminary list. New medications on hospital discharge: Augmentin 875 mg p.o. twice daily for 10 days. Prescription for #20 was given. All other home medications were continued at his usual home dosages. DISCHARGE INSTRUCTIONS: The patient will be discharged from the hospital where he should follow up with his surgeon and Infectious Disease on Wednesday. He will need daily dressing changes. He was ins tructed to seek medical attention if his wound worsens. /[id number]/MODL
[2016-06-03] MEDS ORDERED: WARFARIN SODIUM 2.5 MG TAB PO SCH (16:00)
== END 2016-06-02 12:26 | disposition home or self-care (01) | DRG 863 ==
LOC: INTOOBSV 20:43 → F3N 21:31 → OBSVTOIN 05-30 14:14
PROVIDERS: ADMIT Internal Medicine; ATTEND Internal Medicine
DX: T81.4XXA Infection following a procedure, initial encounter (principal); L03.113 Cellulitis of right upper limb; I10 Essential (primary) hypertension; K59.00 Constipation, unspecified; E78.5 Hyperlipidemia, unspecified; Z95.0 Presence of cardiac pacemaker; Z79.01 Long term (current) use of anticoagulants; Z85.820 Personal history of malignant melanoma of skin
CPT/HCPCS: 96365; 97161-GP; G0378; G8978-GP-CH; G8979-GP-CH; G8981-GP-CH; J1956; J2543; J3370

== ENCOUNTER → 2016-09-09 | Outpatient (CLI) | payer OTHER | LOC: FIMAGING 14:12 | PROVIDERS: ATTEND Orthopaedic Surgery | DX: R93.7 Abnormal findings on diagnostic imaging of other parts of musculoskeletal system (principal); M25.512 Pain in left shoulder ==

== ENCOUNTER → 2016-11-04 | Outpatient (CLI) | payer OTHER ==
[~2016-11-04] MED LIST: IOPAMIDOL (ISOVUE-300) 100 ML BTL ONE
== END ==
LOC: FIMAGING 14:15
DX: I51.7 Cardiomegaly (principal); K57.90 Diverticulosis of intestine, part unspecified, without perforation or abscess without bleeding; C43.61 Malignant melanoma of right upper limb, including shoulder
CPT/HCPCS: 71260; 74177; Q9967

== ENCOUNTER 2018-06-27 08:05 | Day surgery (SDC) | payer OTHER ==
[~2018-06-27 08:05] MED LIST changes: +BACITRACIN IRRIGATION/NS 50,000 UNITS/1,000 ML BTL IRR ONE; +DIAZEPAM 5 MG TAB PO ONE; -IOPAMIDOL (ISOVUE-300) 100 ML BTL ONE; +NS 1,000 ML IV ONE; +ceFAZolin 2 GM/DEXTROSE 100 ML IV ONE; +diphenhydrAMINE 25 MG CAP PO ONE
[2018-06-27 08:53] LABS: PLATELET COUNT 163 10^3/uL (150-400)
[2018-06-27 09:20] LABS: INR 1.79 (0.83-1.16)
--- NOTE | 2018-06-27 10:20 | PDGENHP ---
History & Physical Chief Complaint: bradycardia Relevant Physical Exam: s1s2. cta. ao3 Cardiorespiratory Assessment: pm at franco, for generator change
[2018-06-27] MEDS ORDERED: BUPIVACAINE 0.5% 30 ML SDV ONE (10:29)
[2018-06-27] MEDS ORDERED: LIDOCAINE 1% 300 MG/30 ML SDV ONE (10:29)
--- NOTE | 2018-06-27 10:41 | PDANEPAE ---
ANE History of Present Illness pacemaker change ANE Past Medical History - Cardiovascular History Hx Hypertension: Yes Hx Arrhythmias: Yes Hx Chest Pain: No Hx Coronary Artery / Peripheral Vascular Disease: No Hx CHF / Valvular Disease: No Hx Palpitations: Yes - Pulmonary History Hx COPD: No Hx Asthma/Reactive Airway Disease: No Hx Recent Upper Respiratory Infection: No Hx Oxygen in Use at Home: No Hx Sleep Apnea: No - Neurologic History Hx Cerebrovascular Accident: No Hx Seizures: No Hx Dementia: No Neurologic History Comment: Deafness - Endocrine History Hx Diabetes: No Hypothyroid: No Hyperthyroid: No Obesity: no - Renal History Hx Renal Disorders: No - Liver History Hx Hepatic Disorders: No - Neurological & Psychiatric Hx Hx Neurological and Psychiatric Disorders: No - Cancer History Hx Cancer: Yes Cancer History Comment: melanoma - GI History GERD: no - Chronic Pain History Chronic Pain: No - Surgical History Prior Surgeries: s/p pacemaker, lymph node dissection, inguinal hernia repair, ANE Review of Systems Review of Systems: - Exercise capacity METS (RN): 3 METS ANE Patient History - Allergies Allergies/Adverse Reactions: No Known Allergies Allergy (Verified 12/30/11 18:05) - Home Medications Home Medications: Gabapentin [Neurontin 300 MG (*)] 300 mg PO HS 05/29/16 [Last Taken 06/26/18] Simvastatin 40 mg PO HS 05/29/16 [Last Taken 06/26/18] traZODone [traZODONE 50MG (*)] 75 mg PO HS 05/29/16 [Last Taken 06/26/18] Cholecalciferol Vit D3 [Vitamin D3 2000 units tab (OTC)] 2,000 units PO DAILY [Last Taken Unknown] Herbals/Supplements -Info Only 1 ea PO DAILY 06/27/18 [Last Taken Unknown] Ramipril [Altace] 10 mg PO DAILY 06/27/18 [Last Taken 06/26/18] Warfarin Sodium [Coumadin 1MG (*)] 1 mg PO SA 06/27/18 [Last Taken 06/25/18] Warfarin Sodium [Coumadin 4MG (*)] 4 mg PO SUMOTUWETHFR 06/27/18 [Last Taken 02/02] - Smoking Hx Smoking Status: Never smoked Marijuana use: No - Alcohol Use Alcohol Use: Other (2 beers/day) - Family Anes Hx Family Anes Hx: none ANE Labs/Vital Signs - Labs Result Diagrams: 06/27/18 08:15 06/27/18 08:15 - Vital Signs Height: 172.72 cm Weight: 70.307 kg ANE Physical Exam - Airway Neck exam: FROM Mallampati Score: Class 1 Mouth exam: normal dental/mouth exam - Pulmonary Pulmonary: clear to auscultation - ASA Status ASA Status: III ANE Anesthesia Plan Anesthesia Plan: GA with mask
[2018-06-27] MEDS ORDERED: PROPOFOL 200 MG/20 ML VIAL ONE ×2 (11:18→11:35)
[2018-06-27] MEDS ORDERED: fentaNYL 100 MCG/2 ML INJ IVP PRN (11:46)
[2018-06-27] MEDS ORDERED: NALOXONE HCL 0.4 MG/ML INJ IVP PRN (11:46)
--- NOTE | 2018-06-27 12:22 | EPPROC ---
Electrophysiology Procedure Note: PROCEDURE PERFORMED: 1. V Pacemaker generator change INDICATION: Pacemaker generator at NO Bradycardia Atrial fibrillation PROCEDURE NOTE: Patient presented to the cardiac catherization laboratory in a fasting, postabsorptive state. Dr. Jake Grande administered sedation. The L infraclavicular area was prepped and draped in the usual sterile fashion. The patient has a large lipoma lateral to the pacemaker incision, we avoided this area. Lidocaine plus bupivacaine was used for local anesthesia. Using a combination of blunt and sharp dissection and electrocautery, the dissection was carried down to the prepectoral fascia and the existing pacemaker pocket was opened. The pacemaker generator was disconnected from the leads and the lead thresholds and impedance were checked. The pacemaker pocket was copiously irrigated with antibiotic solution. The pocket was again inspected for any bleeding. The leads were attached to the pacemaker securely. The pacemaker was inserted into the pocket and secured in place with a nonabsorbable suture. The pacemaker pocket was closed in 3 layers with absorbable monocryl sutures and kelli. Appropriate dressing was applied. The patient left the cardiac catheterization laboratory in stable condition. Serial Numbers: 1. Device Biotronik Edora 8 [facility] SN [id number] 2. R Ventricular Lead [employer] 4076-52 SN [id number] Stimulation Thresholds & Impedance Measurements: 1. R Ventricular Lead R 8.3 mV 507 ohm 0.7 V 0.4 ms Liam Pacing Parameters 1. Pacing mode VVI 2. Lower rate 40ppm Patient Problems: Problems Problem Status Onset Bradycardia Acute Atrial fibrillation Acute Diverticulitis Active Benign hypertension Active Cardiac pacemaker in situ Active History of - pulmonary embolus Active Epistaxis Active Right forearm cellulitis Acute
--- NOTE | 2018-06-27 13:36 | POSTANESTH ---
Post Anesthetic Evaluation Cardiovascular Status: Similar to Pre-Op Cond Respiratory Status: Normal, Stable Level of Consciousness/Mental Status: Can Participate in Eval Pain Control: Adequate, Prn Tx Ordered Nausea/Vomiting Control: Adequate, Prn Tx Ordered Complications Possibly Related to Anesthesia: None Noted
--- NOTE | 2018-06-28 13:14 | CPEKG ---
Test Reason : OPEN Blood Pressure : / mmHG Vent. Rate : 050 BPM Atrial Rate : 000 BPM P-R Int : 077 ms QRS Dur : 098 ms QT Int : 505 ms P-R-T Axes : 256 068 -53 degrees QTc Int : 461 ms AF with intermittent V pacing Nonspecific repol abnormality, diffuse leads Confirmed by Howard Fuentes ([id number]) on 06/28/2018 1:13:45 PM Referred By: Howard Fuentes Confirmed By:Howard Fuentes
== END 2018-06-27 14:30 | disposition home or self-care (01) ==
LOC: FCATH 08:05
PROVIDERS: ATTEND Internal Medicine Cardiovascular Disease
PROC: 0JH607Z Insertion of Cardiac Resynchronization Pacemaker Pulse Generator into Chest Subcutaneous Tissue and Fascia, Open Approach (ICD-10-PCS; principal; 2018-06-27)
PROC: 0JPT0PZ Removal of Cardiac Rhythm Related Device from Trunk Subcutaneous Tissue and Fascia, Open Approach (ICD-10-PCS; principal; 2018-06-27)
DX: Z45.010 Encounter for checking and testing of cardiac pacemaker pulse generator [battery] (principal); R00.1 Bradycardia, unspecified; D17.1 Benign lipomatous neoplasm of skin and subcutaneous tissue of trunk
CPT/HCPCS: C1786; J0690; J2704